=== PATIENT | female | born 1935 | race Caucasian/White ===

== ENCOUNTER 2017-09-22 07:49 | Day surgery (SDC) | payer OTHER | END 2017-09-22 08:15 | disposition home or self-care (01) | LOC: HCAT 07:49 → HDIC 07:49 → HCAT 08:15 | PROVIDERS: ATTEND Surgery | DX: Z53.8 Procedure and treatment not carried out for other reasons (principal); I73.9 Peripheral vascular disease, unspecified | CPT/HCPCS: 99211; G0463 ==

== ENCOUNTER 2017-10-01 08:28 | Inpatient (IN) | payer OTHER, MEDICARE ==
[~2017-10-01] VITALS: Ht 154.9 cm; Wt 56.0 kg
[2017-10-01] VITALS (7 sets, daily range): BP systolic 110–158; BP diastolic 34–64; PULSE 63–93; RESP 18–19; TEMP 98–101; O2SAT 94–99
--- NOTE | 2017-10-01 09:57 | PD.VS.PN ---
Pre-operative Note Pre-operative diagnosis: vertebrobasilar insufficiency, L SCA occlusion Planned procedure: LEFT carotid-subclavian bypass Interval History: Pt has persistent dizziness but no other changes in her health that would preclude OR Blood: T&S EKG: no changes Imaging: CTA ([facility] 07/30/17) reviewed Orders: NPO Ancef 2g IV OCTOR Post-operative destination: [facility]PCU Operative site marked: Yes Consent: Informed consent has been obtained from Laura Watson. I have explained the procedure in detail and discussed the risks, benefits, and potential complications. All questions have been answered. Patient contact information: [phone] Contreras Hadley MD Oct 01, 2017 09:57
[2017-10-01] MEDS ORDERED: LISI20TA PO (10:06)
[2017-10-01] MEDS ORDERED: LOVA40TA PO (10:06)
[2017-10-01] MEDS ORDERED: CILO100T PO (10:06)
[2017-10-01] MEDS ORDERED: CYAN100025 PO (10:07)
[2017-10-01] MEDS ORDERED: [UNRECOGNIZED DRUG - CODE] PO (10:07)
[2017-10-01] MEDS ORDERED: ASPI-516 PO (10:07)
[2017-10-01] MEDS ORDERED: VITA150T (10:07)
[2017-10-01] MEDS ORDERED: CALC600T10 PO (10:07)
[2017-10-01] MEDS ORDERED: HEPARIN SODIUM - IV 10,000 UNITS/10 ML VIAL ONE (10:27)
[2017-10-01] MEDS ORDERED: NITROGLYCERIN INJ 5 ML ONE (10:27)
[2017-10-01] MEDS ORDERED: HEPARIN-NS/PF INJ 500 ML ONE (10:27)
[2017-10-01] MEDS ORDERED: LIDOCAINE HCL 1% 20 ML VIAL ONE (10:28)
[2017-10-01 10:40] LABS: BICARBONATE 22.9 MEQ/L (21.0-32.0); CALCIUM 8.8 MG/DL (8.5-10.1); CREATININE 0.92 MG/DL (0.50-1.00)
[2017-10-01 10:43] LABS: INTERNATIONAL NORMALIZED RATIO 1.1 RATIO; PROTHROMBIN TIME - PATIENT 10.7 SEC (9.8-11.6)
[2017-10-01] MEDS ORDERED: SODIUM CHLORID 0.9% 500 ML IV PRN (10:45)
[2017-10-01] MEDS ORDERED: POVIDONE IODINE 5% (ANTISEPSIS KIT) 4 APPLICATIONS EACH NARE PRN (10:45)
[2017-10-01] MEDS ORDERED: CHLORHEXIDINE GLUCONATE 2 % 1 PACK (2 CLOTHS) TOPICAL PRN (10:45)
[2017-10-01] MEDS ORDERED: METOPROLOL TARTRATE 25 MG TAB PO PRN (10:45)
[2017-10-01] MEDS ORDERED: LACTATED RINGER'S 1000 ML IV PRN (10:45)
[2017-10-01] MEDS ORDERED: ceFAZolin 2 GM PREMIX 50 ML ONE (11:17)
[2017-10-01 11:25] LABS: AUTOMATED NEUTROPHIL # 3.1 TH/MM3 (1.8-7.7); BASOPHIL # 0.1 TH/MM3 (0-0.2); BASOPHIL % 1.2 % (0.0-2.0); LYMPH % 23.9 % (9.0-44.0); LYMPHOCYTE # 1.1 TH/MM3 (1.0-4.8); MEAN CELL VOLUME 65.8 FL (80.0-100.0); MEAN CORPUSCULAR HEMOGLOBIN 20.5 PG (27.0-34.0); MEAN CORPUSCULAR HGB CONC 31.1 % (32.0-36.0); MEAN PLATELET VOLUME 8.3 FL (7.0-11.0); MONO % 8.3 % (0.0-8.0); MONOCYTE # 0.4 TH/MM3 (0-0.9); NEUT % 65.6 % (16.0-70.0); PLATELET COUNT 312 TH/MM3 (150-450); RED BLOOD COUNT 2.37 MIL/MM3 (4.00-5.30); RED CELL DISTRIBUTION WIDTH 19.4 % (11.6-17.2); WHITE BLOOD COUNT 4.7 TH/MM3 (4.0-11.0)
[2017-10-01 11:34] LABS: HEMATOCRIT 15.6 % (35.0-46.0); HEMOGLOBIN 4.9 GM/DL (11.6-15.3)
[2017-10-01] MEDS ORDERED: NORMOSOL R INJ 1,000 ML IV ONE (12:00)
[2017-10-01] MEDS ORDERED: GLYCOPYRROLATE 1 MG/5 ML SYRINGE IV PUSH ONE (12:00)
[2017-10-01] MEDS ORDERED: LIDOCAINE HCL 1% PF 5 ML SYRINGE OTHER ONE (12:00)
[2017-10-01] MEDS ORDERED: PHENYLEPH/NS 1000 MCG/10 ML SYR IV ONE (12:00)
[2017-10-01] MEDS ORDERED: NEOSTIGMINE 5 MG/5 ML SYRINGE IV PUSH ONE (12:00)
[2017-10-01] MEDS ORDERED: PROPOFOL 200 MG/20 ML AMP IV ONE (12:00)
[2017-10-01] MEDS ORDERED: ONDANSETRON HCL 4 MG/2 ML VIAL IV ONE (12:00)
[2017-10-01] MEDS ORDERED: LABETALOL HCL 100 MG/20 ML VIAL IV ONE (12:00)
[2017-10-01] MEDS ORDERED: ESMOLOL HCL 100 MG/10 ML VIAL IV ONE (12:00)
[2017-10-01] MEDS ORDERED: ROCURONIUM INJ 50 MG/5 ML SYRINGE IV PUSH ONE (12:00)
--- NOTE | 2017-10-01 12:19 | HHI.PR ---
cc: Contreras Hadley MD Immediate Post Op Note Procedure Date: Oct 01, 2017 Pre Op Diagnosis: Vertebrobasilar insufficiency, L SCA occlusion Post Op Diagnosis: Vertebrobasilar insufficiency, L SCA occlusion Surgeon: Contreras Hadley Bottom Presser(s): Zakia Torres Procedure: L C-SC bypass Findings: palpable LEFT radial pulse after surgery Complications: none Specimen(s) removed: none Estimated blood loss: 25mL Anesthesia: General Drains: None Fluids: 1400mL IVF Patient to: CVICU Patient Condition: Good Implant/Devices: SEE IMPLANT LOG (if applicable) Date/Time of Procedure: SEE SURGICAL CARE RECORD Contreras Hadley MD Oct 01, 2017 12:19
[2017-10-01] MEDS ORDERED: MAGNESIUM HYDROXIDE SUSP 30 ML CUP PO PRN (12:30)
[2017-10-01] MEDS ORDERED: BISACODYL 10 MG SUPP RECTAL PRN (12:30)
[2017-10-01] MEDS ORDERED: LACTULOSE SYRUP 20 GM/30 ML CUP PO PRN (12:30)
[2017-10-01] MEDS ORDERED: SENNOSIDES 8.6 MG TAB PO PRN (12:30)
[2017-10-01] MEDS ORDERED: PILL SPLITTER OTHER PRN (12:45)
[2017-10-01] MEDS: HYDROmorphone HCL 2 MG TAB PO PRN ×2 (13:02→20:21)
[2017-10-01] MEDS ORDERED: IOHEXOL 350 MG/ML 50 ML BTL (for Cath Lab) OTHER ONE (13:15)
[2017-10-01] MEDS: MORPHINE SULFATE 2 MG/ML INJ IM PRN (14:43)
[2017-10-01] MEDS ORDERED: LORazepam 2 MG/ML VIAL IM ONE (14:45)
[2017-10-01] MEDS: RESP: ALBUTEROL 0.63 MG/3 ML NEB (SCH) NEB ×2 (14:54→21:04)
--- NOTE | 2017-10-01 16:21 | PD.CONS ---
HPI Service Critical Care Medicine Consult Requested By Dr. 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 Hadley, tolerated procedure well and was subsequently transferred to CVICU. A postop hemoglobin of 4.9 though EBL was only 30 cc. Patient tolerated procedure well was subsequently extubated and transferred to CVICU. Critical care consult was requested for medical management and for symptomatic anemia. 2 units PRBCs were ordered and are being transfused the time of my evaluation. When I evaluated the patient she was resting in bed comfortably not in any acute distress. History was obtained by reviewing records and discussion with nursing staff. I do not see a preop hemoglobin in the system. Review of Systems ROS Limited as patient is postop after general anesthesia Past Family Social History Allergies: Coded Allergies: No Known Allergies (Unverified , 10/01/17) Past Medical History Hypertension Past Surgical History Breast surgery, eye surgery, hemorrhoid surgery Reported Medications Aspirin 81 mg daily, calcium carbonate/vitamin D daily, vitamin D3 1000 units by mouth daily, Pletal 100 mg twice daily, lisinopril 20 mg/HCTZ 12.5 mg by mouth daily, lovastatin 40 mg by mouth daily at bedtime, MVI/B complex daily Family History Unavailable at this time Social History Former smoker, drinks 7 glasses of wine per week, no history of any other substance abuse. Physical Exam Vital Signs Vital Signs Date Time Temp Pulse Resp B/P (MAP) Pulse Ox O2 Delivery O2 Flow Rate FiO2 10/01/17 15:00 77 10/01/17 14:54 99 Nasal Cannula 2.00 10/01/17 13:31 73 10/01/17 09:00 97.6 77 24 121/46 (71) 98 Physical Exam HEENT/Neuro: Pallor present, No icterus, tongue moist, FATUMA, Awake alert oriented 3, nonfocal grossly, moving all 4 extremities Neck: No JVD. Surgical site with deric in place Chest/pulmonary: CTA bilaterally Cardiovascular: S1-S2 regular no gallop or murmur GI/abdomen: Soft, nontender, bowel sounds present Extremities: Warm bilaterally, no edema Laboratory Laboratory Tests Test 10/01/17 09:40 10/01/17 11:06 Prothrombin Time 10.7 Prothromb Time International Ratio 1.1 Blood Urea Nitrogen 21 Creatinine 0.92 Random Glucose 102 Calcium Level 8.8 Sodium Level 138 Potassium Level 3.9 Chloride Level 105 Carbon Dioxide Level 22.9 Anion Gap 10 Estimat Glomerular Filtration Rate 59 White Blood Count 4.7 Red Blood Count 2.37 Hemoglobin 4.9 Hematocrit 15.6 Mean Corpuscular Volume 65.8 Mean Corpuscular Hemoglobin 20.5 Mean Corpuscular Hemoglobin Concent 31.1 Red Cell Distribution Width 19.4 Platelet Count 312 Mean Platelet Volume 8.3 Neutrophils (%) (Auto) 65.6 Lymphocytes (%) (Auto) 23.9 Monocytes (%) (Auto) 8.3 Eosinophils (%) (Auto) 1.0 Basophils (%) (Auto) 1.2 Neutrophils # (Auto) 3.1 Lymphocytes # (Auto) 1.1 Monocytes # (Auto) 0.4 Eosinophils # (Auto) 0.0 Basophils # (Auto) 0.1 CBC Comment DIFF FINAL Differential Comment Result Diagram: 10/01/17 1106 10/01/17 0940 Assessment and Plan Assessment and Plan Left subclavian 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 Follow CBC. Will need further evaluation as outpatient by primary care physician unless already evaluated. Check ferritin, iron studies. Severe anemia may be contributing to dizziness/lightheadedness. Supplemental O2, bronchodilators as needed. Hemodynamically stable currently. Resume antiplatelet therapy, statin when okay with vascular surgery. Critical care will be available as needed. Thank you very much for this consult. Regis Cardoza MD Oct 01, 2017 16:21
[2017-10-01 17:14] LABS: % SATURATION IRON PROFILE 1.4 % (20-50); IRON (FE) 8 MCG/DL (50-170); TOTAL IRON BINDING CAPACITY 573 MCG/DL (250-450)
[2017-10-01 17:17] LABS: FERRITIN 5 NG/ML (8-252)
[2017-10-01 18:13] LABS: HEMATOCRIT 28.6 % (35.0-46.0); HEMOGLOBIN 9.5 GM/DL (11.6-15.3); MEAN CELL VOLUME 76.9 FL (80.0-100.0); MEAN CORPUSCULAR HEMOGLOBIN 25.6 PG (27.0-34.0); MEAN CORPUSCULAR HGB CONC 33.3 % (32.0-36.0); MEAN PLATELET VOLUME 7.8 FL (7.0-11.0); PLATELET COUNT 264 TH/MM3 (150-450); RED BLOOD COUNT 3.72 MIL/MM3 (4.00-5.30); RED CELL DISTRIBUTION WIDTH 26.4 % (11.6-17.2); WHITE BLOOD COUNT 12.9 TH/MM3 (4.0-11.0)
[2017-10-01] MEDS ORDERED: FOLIC ACID 1 MG TAB PO SCH (18:45)
--- NOTE | 2017-10-01 19:42 | EKG ---
Date Performed: 10/01/2017 Time Performed: 09:45:02 PTAGE: 81 years EKG: Sinus rhythm LEFT BUNDLE BRANCH BLOCK ABNORMAL ECG NO PREVIOUS TRACING DOCTOR: Debbi Ching Interpretating Date/Time 10/01/2017 19:39:52
[2017-10-01] MEDS: DOCUSATE SODIUM 50 MG/SENNA 8.6 MG TAB PO SCH (20:19)
[2017-10-01] MEDS: FAMOTIDINE 20 MG TAB PO SCH (20:19)
[2017-10-01] MEDS: FOLIC ACID 1 MG TAB PO SCH (20:26)
[2017-10-01] MEDS: IRON SUCROSE INJ 200 MG in SODIUM CHLORIDE 0.9% INJ 100 ML IV SCH (20:26)
[2017-10-01] MEDS ORDERED: hydrALAZINE HCL 20 MG/ML VIAL IV PUSH PRN (20:30)
[2017-10-01] MEDS ORDERED: LABETALOL HCL 100 MG/20 ML VIAL IV PUSH PRN (20:30)
[2017-10-02] VITALS (8 sets, daily range): BP systolic 85–129; BP diastolic 33–62; PULSE 77–109; RESP 16–21; TEMP 98.3–99.7; O2SAT 94–96
[2017-10-02] MEDS ORDERED: ACETAMINOPHEN 325 MG TAB PO PRN (00:15)
[2017-10-02] MEDS: RESP: ALBUTEROL 0.63 MG/3 ML NEB (SCH) NEB ×4 (04:03→21:23)
[2017-10-02 04:04] LABS: HEMATOCRIT 27.4 % (35.0-46.0); HEMOGLOBIN 9.2 GM/DL (11.6-15.3); MEAN CELL VOLUME 75.9 FL (80.0-100.0); MEAN CORPUSCULAR HEMOGLOBIN 25.6 PG (27.0-34.0); MEAN CORPUSCULAR HGB CONC 33.7 % (32.0-36.0); MEAN PLATELET VOLUME 8.1 FL (7.0-11.0); PLATELET COUNT 228 TH/MM3 (150-450); RED BLOOD COUNT 3.61 MIL/MM3 (4.00-5.30); RED CELL DISTRIBUTION WIDTH 26.6 % (11.6-17.2); WHITE BLOOD COUNT 14.3 TH/MM3 (4.0-11.0)
[2017-10-02 04:44] LABS: BICARBONATE 24.2 MEQ/L (21.0-32.0); CREATININE 0.89 MG/DL (0.50-1.00)
--- NOTE | 2017-10-02 07:11 | PD.VS.PN ---
Subjective POD #: 1 Procedure(s): L C-SC bypass Subjective/Hospital Course Pain at incision site but otherwise ok Anisocoria but no neuro deficits no visual changes no dizziness Objective Vitals/I&O Date Time Temp Pulse Resp B/P (MAP) Pulse Ox O2 Delivery O2 Flow Rate FiO2 10/02/17 03:00 82 10/02/17 03:00 99.1 79 16 116/49 (71) 96 121/33 (62) 10/02/17 01:21 16 10/01/17 23:00 92 10/01/17 23:00 101.0 93 18 110/47 (68) 95 134/34 (67) 10/01/17 21:32 19 10/01/17 21:06 94 Nasal Cannula 2.00 10/01/17 19:00 99.1 90 19 137/64 (88) 96 158/43 (81) 10/01/17 19:00 90 10/01/17 16:53 98.0 63 18 141/60 10/01/17 15:00 77 10/01/17 14:54 99 Nasal Cannula 2.00 10/01/17 14:48 18 10/01/17 13:31 73 10/01/17 09:00 97.6 77 24 121/46 (71) 98 10/02/17 10/02/17 10/02/17 07:00 15:00 23:00 Intake Total 480 ml Output Total 530 ml Balance -50 ml Exam: L neck TTP palpable L radial pulse Laboratory Laboratory Tests Test 10/01/17 09:40 10/01/17 11:06 10/01/17 17:50 10/02/17 03:46 Prothrombin Time 10.7 Prothromb Time International Ratio 1.1 Blood Urea Nitrogen 21 16 Creatinine 0.92 0.89 Random Glucose 102 110 Calcium Level 8.8 8.0 Sodium Level 138 136 Potassium Level 3.9 3.7 Chloride Level 105 103 Carbon Dioxide Level 22.9 24.2 Anion Gap 10 9 Estimat Glomerular Filtration Rate 59 61 Iron Level 8 Total Iron Binding Capacity 573 Percent Iron Saturation 1.4 Ferritin 5 White Blood Count 4.7 12.9 14.3 Red Blood Count 2.37 3.72 3.61 Hemoglobin 4.9 9.5 9.2 Hematocrit 15.6 28.6 27.4 Mean Corpuscular Volume 65.8 76.9 75.9 Mean Corpuscular Hemoglobin 20.5 25.6 25.6 Mean Corpuscular Hemoglobin Concent 31.1 33.3 33.7 Red Cell Distribution Width 19.4 26.4 26.6 Platelet Count 312 264 228 Mean Platelet Volume 8.3 7.8 8.1 Neutrophils (%) (Auto) 65.6 Lymphocytes (%) (Auto) 23.9 Monocytes (%) (Auto) 8.3 Eosinophils (%) (Auto) 1.0 Basophils (%) (Auto) 1.2 Neutrophils # (Auto) 3.1 Lymphocytes # (Auto) 1.1 Monocytes # (Auto) 0.4 Eosinophils # (Auto) 0.0 Basophils # (Auto) 0.1 CBC Comment DIFF FINAL Differential Comment Assessment and Plan Plan POD#1 s/p L C-SC bypass 1. Normalize and transfer to CPCU 2. PT consult 3. D/C planning 4. Outpatient w/u for chronic anemia, likely iron deficiency Discharge Planning tomorrow Contreras Hadley MD Oct 02, 2017 07:10
[2017-10-02] MEDS ORDERED: NON-FORMULARY DRUG (Lisinopril-Hctz 1 TAB) PO SCH (09:00)
[2017-10-02] MEDS: CYANOCOBALAMIN 1,000 MCG TAB PO SCH (09:00)
[2017-10-02] MEDS: FAMOTIDINE 20 MG TAB PO SCH ×2 (09:29→20:35)
[2017-10-02] MEDS: PRAVASTATIN SOD 40 MG TAB PO SCH (09:29)
[2017-10-02] MEDS: LISINOPRIL 20 MG TAB PO SCH (09:30)
[2017-10-02] MEDS: CALCIUM/VITAMIN D 250 MG/125 U TAB PO SCH (09:30)
[2017-10-02] MEDS: HYDROCHLOROTHIAZIDE 25 MG TAB PO SCH (09:31)
[2017-10-02] MEDS: FOLIC ACID 1 MG TAB PO SCH (09:31)
[2017-10-02] MEDS: ASPIRIN 81 MG CHEW TAB PO SCH (09:32)
[2017-10-02] MEDS: DOCUSATE SODIUM 50 MG/SENNA 8.6 MG TAB PO SCH ×2 (09:32→20:35)
[2017-10-02] MEDS: CILOSTAZOL 100 MG TAB PO SCH (09:33)
[2017-10-02] MEDS: ENOXAPARIN SODIUM 30 MG/0.3 ML SYRINGE SQ SCH (13:17)
[2017-10-02] MEDS: IRON SUCROSE INJ 200 MG in SODIUM CHLORIDE 0.9% INJ 100 ML IV SCH (20:35)
[2017-10-02] MEDS: HYDROmorphone HCL 2 MG TAB PO PRN (22:28)
[2017-10-03] MEDS: MORPHINE SULFATE 2 MG/ML INJ IM PRN (00:10)
[2017-10-03] MEDS: METOPROLOL TARTRATE 5 MG/5 ML VIAL IV PUSH SCH ×3 (00:36→12:12)
[2017-10-03 03:00] VITALS: BP 112/50; PULSE 90; RESP 17; TEMP 99.5; O2SAT 97
[2017-10-03] MEDS: RESP: ALBUTEROL 0.63 MG/3 ML NEB (SCH) NEB ×3 (04:21→16:17)
[2017-10-03 07:23] VITALS: PULSE 89
[2017-10-03 07:24] VITALS: BP 128/51; PULSE 89; RESP 20; TEMP 99.1; O2SAT 92
[2017-10-03] MEDS: LISINOPRIL 20 MG TAB PO SCH (08:53)
[2017-10-03] MEDS: CALCIUM/VITAMIN D 250 MG/125 U TAB PO SCH (08:53)
[2017-10-03] MEDS: CILOSTAZOL 100 MG TAB PO SCH (08:53)
[2017-10-03] MEDS: ASPIRIN 81 MG CHEW TAB PO SCH (08:54)
[2017-10-03] MEDS: FAMOTIDINE 20 MG TAB PO SCH (08:54)
[2017-10-03] MEDS: PRAVASTATIN SOD 40 MG TAB PO SCH (08:54)
[2017-10-03] MEDS: DOCUSATE SODIUM 50 MG/SENNA 8.6 MG TAB PO SCH (08:54)
[2017-10-03] MEDS: FOLIC ACID 1 MG TAB PO SCH (08:54)
[2017-10-03] MEDS: CYANOCOBALAMIN 1,000 MCG TAB PO SCH (08:54)
[2017-10-03] MEDS: HYDROCHLOROTHIAZIDE 25 MG TAB PO SCH (08:55)
--- NOTE | 2017-10-03 09:01 | PD.VS.PN ---
Subjective POD #: 2 Procedure(s): L C-SC bypass Subjective/Hospital Course Pain at incision site but otherwise ok no more tinnitus josette po except for mild sore throat no SOB no dizziness Objective Vitals/I&O Date Time Temp Pulse Resp B/P (MAP) Pulse Ox O2 Delivery O2 Flow Rate FiO2 10/03/17 07:24 99.1 89 20 128/51 (76) 92 10/03/17 07:23 89 10/03/17 03:00 90 10/03/17 03:00 99.5 90 17 112/50 (70) 97 10/03/17 00:29 17 10/02/17 23:37 20 10/02/17 23:00 105 10/02/17 23:00 98.7 105 21 129/51 (77) 95 10/02/17 21:24 95 Nasal Cannula 3.00 10/02/17 19:00 99.7 109 18 126/45 (72) 96 Arterial Line 10/02/17 19:00 106 10/02/17 17:06 18 10/02/17 15:19 88 16 119/50 (73) 95 94/62 (73) 10/02/17 15:19 81 10/02/17 11:31 80 16 103/41 (61) 95 85/33 (50) 10/02/17 11:31 81 10/02/17 09:44 94 Nasal Cannula 3.00 10/03/17 10/03/17 10/03/17 07:00 15:00 23:00 Intake Total 240 ml Output Total 1000 ml Balance -760 ml Exam: L neck incision c/d/i palpable L radial pulse Assessment and Plan Plan POD#2 s/p L C-SC bypass 1. Ambulate this morning 2. D/C today 3. F/u with PCP re: Iron deficiency anemia Discharge Planning today Contreras Hadley MD Oct 03, 2017 09:01
--- NOTE | 2017-10-03 09:04 | PD.VS.DC ---
Discharge Summary Admission Date: Oct 01, 2017 at 08:28 Discharge Date: Oct 03, 2017 Admission Diagnosis: (1) Vertebro basilar insufficiency Discharge Diagnosis: (1) Anemia ICD Codes: D64.9 - Anemia, unspecified (2) Vertebro basilar insufficiency ICD Codes: G45.0 - Vertebro-basilar artery syndrome Brief History from admission The patient has severe dizziness and an occluded L SCA with a very dominant L vertebral artery. Offered L C-SC in attempt to treat VBI Procedure(s): L C-SC bypass Significant Findings Laboratory Tests Test 10/01/17 09:40 10/01/17 11:06 10/01/17 17:50 10/02/17 03:46 Blood Urea Nitrogen 21 MG/DL (7-18) Estimat Glomerular Filtration Rate 59 ML/MIN (>89) 61 ML/MIN (>89) Iron Level 8 MCG/DL (50-170) Total Iron Binding Capacity 573 MCG/DL (250-450) Percent Iron Saturation 1.4 % (20-50) Ferritin 5 NG/ML (8-252) Red Blood Count 2.37 MIL/MM3 (4.00-5.30) 3.72 MIL/MM3 (4.00-5.30) 3.61 MIL/MM3 (4.00-5.30) Hemoglobin 4.9 GM/DL (11.6-15.3) 9.5 GM/DL (11.6-15.3) 9.2 GM/DL (11.6-15.3) Hematocrit 15.6 % (35.0-46.0) 28.6 % (35.0-46.0) 27.4 % (35.0-46.0) Mean Corpuscular Volume 65.8 FL (80.0-100.0) 76.9 FL (80.0-100.0) 75.9 FL (80.0-100.0) Mean Corpuscular Hemoglobin 20.5 PG (27.0-34.0) 25.6 PG (27.0-34.0) 25.6 PG (27.0-34.0) Mean Corpuscular Hemoglobin Concent 31.1 % (32.0-36.0) Red Cell Distribution Width 19.4 % (11.6-17.2) 26.4 % (11.6-17.2) 26.6 % (11.6-17.2) Monocytes (%) (Auto) 8.3 % (0.0-8.0) White Blood Count 12.9 TH/MM3 (4.0-11.0) 14.3 TH/MM3 (4.0-11.0) Random Glucose 110 MG/DL (74-106) Calcium Level 8.0 MG/DL (8.5-10.1) Hospital Course: Preoperatively she was found to be profoundly anemic. She underwent a L C-SC bypass without difficulty and did well post-operatively. Her Hct remained stable after transfusion of 2U PRBC. Ready for D/C POD#2. Discharge Condition: Good Discharge Disposition: Discharge Home Any questions or concerns: Call [facility] [phone] Contreras Hadley MD Oct 03, 2017 09:04
[2017-10-03 10:43] VITALS: O2SAT 91
[2017-10-03 11:07] VITALS: BP 112/72; PULSE 93; RESP 17; TEMP 98.2; O2SAT 91
[2017-10-03] MEDS: ENOXAPARIN SODIUM 30 MG/0.3 ML SYRINGE SQ SCH (12:11)
--- NOTE | 2017-10-03 21:31 | MP ---
cc: ALVARO HADLEY MD DATE OF SURGERY: 10/01/2017. PREOPERATIVE DIAGNOSIS: Vertebrobasilar insufficiency and left subclavian artery occlusion POSTOPERATIVE DIAGNOSIS: Vertebrobasilar insufficiency left and subclavian artery occlusion OPERATIVE PROCEDURE PERFORMED: Left carotid subclavian bypass with 8 mm Dacron. SURGEON: Alvaro Hadley MD. CATALYTIC CONVERTER OPERATOR: Zakia Slaughter. ANESTHESIA: General. INDICATIONS FOR THE PROCEDURE: Ms. Watson is an 81-year-old lady with symptomatic vertebrobasilar insufficiency. She has an occluded left subclavian artery and a significant blood pressure discrepancy in the left and right arms. Additionally, she has an atretic right vertebral artery and very large left vertebral artery. After a thorough discussion was had with the patient, she was offered a left carotid subclavian bypass to provide antegrade perfusion to her left vertebral artery. DESCRIPTION OF THE PROCEDURE IN DETAIL: Informed consent was obtained from the patient. She was taken to the operating room and placed supine on the operating room table. An appropriate time out was taken to ensure the patient's identity, the operative site and the planned procedure. Administration of 2 grams of Ancef was initiated prior to skin incision in a single preoperative dose. Everyone in the room agreed with the time out procedure and we proceeded. Her left neck was prepped and draped. An incision was made above the left clavicle and carried down through the subcutaneous tissue with electrocautery. The scalene fat pad was mobilized. The lateral border of the sternocleidomastoid was incised. The anterior scalene muscle was incised thereby exposing the subclavian artery which was encircled with Vesseloop. On medial aspect incision, the jugular vein was identified and encircled with a Vesseloop. The common carotid artery was identified and also encircled with a Vesseloop. The patient was systemically heparinized with 6000 units of IV heparin. Proximal and distal control of the subclavian artery was obtained with profunda clamps and a longitudinal arteriotomy was made with an 11 blade and extended with Bronson scissors. An 8 mm Dacron was spatulated and sewn end-to-side with running 5-0 Prolene suture. The incision was flushed and noted to be hemostatic. A Anthony soft jaw clamp was placed on the Dacron and the Dacron was tunnelled underneath the jugular vein. The patient's common carotid artery was occluded proximally and distally with profunda clamps and a longitudinal arteriotomy was made and extended with Bronson scissors. An 8 mm Dacron was cut to appropriate length and sewn end-to-side with running 5-0 Prolene suture. At the conclusion, it was flushed and was hemostatic. There was a nice Doppler signal in the distal common carotid artery and a palpable pulse in the left subclavian artery distal to the anastomosis. The wound was irrigated and made hemostatic. The skin and fat peripheral artery disease was reapproximated. This wound was then closed with 2-0 Polysorb, 3-0 Polysorb and 4-0 Monocryl. Sponge and needle counts were correct at the end of the case. I was present and scrubbed for the entire procedure. MD JANNETTE Muñiz/GREGORIO /12:22 PM /9:18 PM MTDLia
== END 2017-10-03 17:45 | disposition home or self-care (01) | DRG 253 ==
LOC: HSDI 08:28 → HCVI 13:11
PROVIDERS: ADMIT Surgery; ATTEND Surgery
PROC: 03140JK Bypass Left Subclavian Artery to Left Extracranial Artery with Synthetic Substitute, Open Approach (ICD-10-PCS; principal; 2017-10-01 10:40)
DX: I82.B12 Acute embolism and thrombosis of left subclavian vein (principal); G45.0 Vertebro-basilar artery syndrome; I10 Essential (primary) hypertension; D50.9 Iron deficiency anemia, unspecified; I70.8 Atherosclerosis of other arteries; Z87.891 Personal history of nicotine dependence
CPT/HCPCS: 36430; 80048; 82728; 83540; 83550; 85025; 85027; 85610; 86850; 86900; 86901; 86920; 93005; 94640; 94664; C1768; J0360; J0690; J1644; J1650; J1756; J2060; J2270; J2370; J2405; J2710; J3010; J7120; J7613; P9016; Q9967

== ENCOUNTER 2017-10-06 14:42 | Emergency (ER) | payer OTHER ==
[~2017-10-06 14:42] MED LIST: ASPI-516 PO; CALC600T10 PO; CILO100T PO; CYAN100025 PO; LISI20TA PO; LOVA40TA PO; VITA150T; [UNRECOGNIZED DRUG - CODE] PO
[2017-10-06 14:56] VITALS: BP 139/61; PULSE 99; RESP 12; TEMP 98.1; O2SAT 96
--- NOTE | 2017-10-06 16:16 | PD ---
HPI Chief Complaint: Eye Problems/Injury Time Seen by Provider: 15:25 Travel History International Travel<30 days: No Contact w/Intl Traveler<30days: No Traveled to known affect area: No History of Present Illness HPI 81-year-old female complains of partial vision loss from the left eye. Patient status post left carotid endarterectomy 5 days ago. Patient states that she started having partial loss of vision after the surgery. Patient states that she lost 50% of the visual field on the left side from the left eye. Patient has no problem with the right eye. Patient denies any headache. Patient denies any fever. Patient denies any focal weakness or numbness of the face, trunk, extremity. Patient states that she had similar symptoms of left eye visual field loss and dilated left pupil after back surgery about 3 years ago. Patient states that the symptoms resolved after several weeks. Patient has history of hypertension, hyperlipidemia. Patient on aspirin 81 mg daily. PFSH Past Medical History Cancer: No Cardiovascular Problems: Yes Diabetes: No Endocrine: No Genitourinary: No Hiatal Hernia: No Hypertension: Yes Immune Disorder: No Medical other: No Musculoskeletal: Yes (ARTHRITS, BACK) Neurologic: No Respiratory: No Thyroid Disease: No Past Surgical History AICD: No Body Medical Devices: BREAST IMPLANTS Eye Surgery: Yes (ABELARDO CATERACT) Joint Replacement: No Oral Surgery: Yes (TONSILLECTOMY) Pacemaker: No Tonsillectomy: Yes Other Surgery: Yes (bilat breast implants;hemorrhoidectomy) Social History Alcohol Use: Yes (wine/daily) Tobacco Use: No Substance Use: No Allergies-Medications (Allergen,Severity, Reaction): Coded Allergies: No Known Allergies (Unverified , 10/01/17) Reported Meds & Prescriptions Reported Meds & Active Scripts Active Reported D3 (Cholecalciferol) 1,000 Unit Cap 1 Tab PO DAILY B-12 (Cyanocobalamin) 1,000 Mcg Subl 1,000 Mcg PO DAILY Super B Complex (Vitamin B Complex Vit C No.4) 150 Mg Tablet Calcium + D3 (Calcium Carbonate-Cholecalciferol) 600-200 Mg-Unit Tab 2 Tab PO DAILY Aspirin 81 Mg Chew 81 Mg PO DAILY Cilostazol 100 Mg Tab 100 Mg PO DAILY Lisinopril-Hctz 20-12.5 Mg Tab 1 Tab PO DAILY Lovastatin 40 Mg Tab 80 Mg PO DAILY Review of Systems General / Constitutional: No: Fever Eyes: Positive: Visual changes HENT: No: Headaches Cardiovascular: No: Chest Pain or Discomfort Respiratory: No: Shortness of Breath Gastrointestinal: No: Abdominal Pain Genitourinary: No: Dysuria Musculoskeletal: No: Pain Skin: No Rash Neurologic: No: Weakness Psychiatric: No: Depression Endocrine: No: Polydipsia Hematologic/Lymphatic: No: Easy Bruising Physical Exam Narrative GENERAL: Well-nourished, well-developed patient. SKIN: Focused skin assessment warm/dry. HEAD: Normocephalic. EYES: No scleral icterus. No injection or drainage. NECK: Supple, trachea midline. No JVD or lymphadenopathy. CARDIOVASCULAR: Regular rate and rhythm without murmurs, gallops, or rubs. RESPIRATORY: Breath sounds equal bilaterally. No accessory muscle use. GASTROINTESTINAL: Abdomen soft, non-tender, nondistended. MUSCULOSKELETAL: No cyanosis, or edema. BACK: Nontender without obvious deformity. No CVA tenderness. Neurologic exam: Patient is awake and alert oriented 3. Patient has dilated left pupil nonreactive. Fundi benign. Patient has visual loss of the left upper quadrant and left lower quadrant visual field of the left eye. Data Data Last Documented VS Vital Signs Date Time Temp Pulse Resp B/P (MAP) Pulse Ox O2 Delivery O2 Flow Rate FiO2 10/06/17 14:56 98.1 99 12 139/61 (87) 96 MDM Medical Decision Making Medical Screen Exam Complete: Yes Emergency Medical Condition: Yes Differential Diagnosis Differential diagnosis including spasm versus occlusion of branch of the left retinal artery. Narrative Course 81-year-old female with partial visual field loss left eye after carotid endarterectomy surgery 5 days ago. I spoke with tape editor Dr. Jay. Advised sed rate and he will see patient in the office in a.m. for follow-up. Diagnosis Primary Impression: Visual field loss Additional Instructions: Follow up with tape editor, Dr. Jay, in a.m. Med/Other Pt SpecificInfo: No Change to Meds Disposition: 01 DISCHARGE HOME Condition: Stable Ray Doss MD Oct 06, 2017 16:16
[2017-10-06 16:38] VITALS: BP 135/58
== END 2017-10-06 16:38 | disposition home or self-care (01) ==
LOC: NEPC 14:42
DX: H53.40 Unspecified visual field defects (principal); E78.5 Hyperlipidemia, unspecified; I10 Essential (primary) hypertension; M46.90 Unspecified inflammatory spondylopathy, site unspecified; Z98.890 Other specified postprocedural states
CPT/HCPCS: 85652; 99283